=== PATIENT | female | born 1960 | race Caucasian/White ===

== ENCOUNTER 2016-09-21 12:38 | Emergency (ER) | payer MEDICAID ==
[~2016-09-21] VITALS: Wt 82.0 kg
--- NOTE | 2016-09-21 14:01 | RADRPT ---
PROCEDURE: US Pelvis. CLINICAL INDICATION: Vaginal bleeding TECHNIQUE: Multiple sonographic images of the pelvis were obtained utilizing a transabdominal and endovaginal technique. The images were reviewed on a PACS workstation. COMPARISON: August 19, 2013 FINDINGS: The uterus is visualized and measures 9.1 x 5.9 x 6.7 cm. The endometrial echo complex measures 5.6 mm thickness. A few intramural uterine fibroids are identified. The largest measures up to approxim ately 2.1 cm and appears stable. The right ovary measures 2.4 x 1.2 x 1.5 cm . The left ovary is not well visualized. The right ova ry demonstrates a normal echogenicity and vascularity.. No adnexal masses or pelvic free fluid are noted. IMPRESSION: Multifibroid uterus. The largest fibroid measures up to 2.1 cm and appears stable. Left ovary not well visualized. If characterization of this structure is needed repeat exam or MRI i s recommended. If further characterization of the organs of the pelvis is needed MRI should be considered. RPTAT: AA .Blade Walker MD, Date Time Electronically viewed and signed by .Blade Walker MD, on 09/21/2016 14:01 .P/
[2016-09-21 14:24] LABS: BASOPHILS % 0.3 % (0.0-2.0); EOSINOPHILS # 0.1 10^3/ul (0.0-0.5); EOSINOPHILS % 2.1 % (0.0-7.0); HEMATOCRIT 36.6 % (37.0-47.0); HEMOGLOBIN 11.8 g/dl (12.0-16.0); LYMPHOCYTES # 1.7 10^3/ul (0.8-2.9); LYMPHOCYTES % 25.1 % (15.0-51.0); MEAN CORPUSCULAR HEMOGLOBIN 29.9 pg (29.0-33.0); MEAN CORPUSCULAR HGB CONC 32.2 g/dl (32.0-37.0); MEAN CORPUSCULAR VOLUME 92.9 fl (82.0-101.0); MEAN PLATELET VOLUME 10.1 fl (7.4-10.4); MONOCYTE # 0.5 10^3/ul (0.3-0.9); MONOCYTES % 7.3 % (0.0-11.0); NEUTROPHIL # 4.3 10^3/ul (1.6-7.5); PLATELET COUNT 292 10^3/UL (140-415); RED BLOOD COUNT 3.94 10^6/ul (4.20-5.40); RED CELL DISTRIBUTION WIDTH 13.5 % (11.5-14.5); WHITE BLOOD COUNT 6.6 10^3/ul (4.8-10.8)
[2016-09-21 14:38] LABS: ALBUMIN 4.5 g/dl (3.3-4.9); ALBUMIN/GLOBULIN RATIO 1.21; BILIRUBIN,INDIRECT 0.2 mg/dl (0-1.1); BILIRUBIN,TOTAL 0.2 mg/dl (0.2-1.3); CREATININE 0.68 mg/dl (0.44-1.00); POTASSIUM 3.9 mmol/L (3.5-5.1); TOTAL PROTEIN 8.2 g/dl (6.1-8.1)
[2016-09-21 14:41] LABS: ADD SCAN DIFF NO
[2016-09-21 15:39] LABS: ADD UMIC YES; UR ASCORBIC ACID NEGATIVE (NEGATIVE); UR BILIRUBIN (Dip) NEGATIVE (NEGATIVE); UR BLOOD (Dip) 3+ mg/dL (NEGATIVE); UR CLARITY SLIGHTLY CLOUDY (CLEAR); UR COLOR YELLOW (YELLOW); UR GLUCOSE (Dip) NEGATIVE (NEGATIVE); UR KETONES (Dip) NEGATIVE (NEGATIVE); UR LEUKOCYTE ESTERASE (Dip) NEGATIVE Leu/ul (NEGATIVE); UR NITRITE (Dip) NEGATIVE (NEGATIVE); UR RBC > 182 /HPF (0-5); UR SPECIFIC GRAVITY (Dip) 1.017 (1.003-1.030); UR SQUAMOUS EPITHELIAL CELL FEW /HPF (FEW); UR TOTAL PROTEIN (Dip) 1+ mg/dl (NEGATIVE); UR UROBILINOGEN (Dip) NEGATIVE (NEGATIVE)
[2016-09-21] MEDS ORDERED: IBUP-1542 PO (15:43)
--- NOTE | 2016-09-21 15:56 | ERD ---
ER Documentation Chief Complaint Date/Time DATE: 09/21/16 TIME: 15:52 Chief Complaint VAG BLEEDING X1 DAY, DENIES PAIN HPI This is a 55-year-old female that presents to the ER with vaginal bleeding that started yesterday. Patient states that she has filled up one pad. Patient denies any pelvic pain she denies any urinary frequency or dysuria. She denies any fevers or chills. She denies any back pain or flank pain. Patient denies any weight loss, night sweats or chills. Patient underwent menopause 3 years ago. ROS 12 point review of systems was done, all negative except per HPI. Medications Home Meds Active Scripts Ibuprofen* (Motrin*) 600 Mg Tab, 600 MG PO Q6, #30 TAB Prov:MONCHO SALAZAR Ann 09/21/16 Allergies Allergies: Coded Allergies: No Known Allergy (Verified , 08/19/13) PMhx/Soc History of Surgery: No Anesthesia Reaction: No Hx Neurological Disorder: No Hx Respiratory Disorders: No Hx Cardiac Disorders: No Hx Psychiatric Problems: No Hx Miscellaneous Medical Probl: No Hx Alcohol Use: No Hx Substance Use: No Hx Tobacco Use: No Physical Exam Vitals Vital Signs Date Time Temp Pulse Resp B/P Pulse Ox O2 Delivery O2 Flow Rate FiO2 09/21/16 12:39 97.0 57 17 105/56 100 Physical Exam GENERAL: The patient is well developed and appropriate for usual state of health , in no apparent distress. HEENT: Atraumatic. CHEST: Clear to auscultation bilaterally. There are no rales, wheezes or rhonchi. HEART: Regular rate and rhythm. No murmurs, clicks, rubs or gallops. ABDOMEN: Soft, nontender and nondistended. BACK: No midline or flank tenderness. NEURO: Alert and oriented. SKIN: The skin is warm and dry. Result Diagram: 09/21/16 1410 09/21/16 1410 Results 24 hrs Laboratory Tests Test 09/21/16 14:10 09/21/16 15:17 White Blood Count 6.610^3/ul Red Blood Count 3.9410^6/ul Hemoglobin 11.8g/dl Hematocrit 36.6% Mean Corpuscular Volume 92.9fl Mean Corpuscular Hemoglobin 29.9pg Mean Corpuscular Hemoglobin Concent 32.2g/dl Red Cell Distribution Width 13.5% Platelet Count 86132^3/UL Mean Platelet Volume 10.1fl Neutrophils % 65.0% Lymphocytes % 25.1% Monocytes % 7.3% Eosinophils % 2.1% Basophils % 0.3% Nucleated Red Blood Cells % 0.0/100WBC Neutrophils # 4.310^3/ul Lymphocytes # 1.710^3/ul Monocytes # 0.510^3/ul Eosinophils # 0.110^3/ul Basophils # 0.010^3/ul Nucleated Red Blood Cells # 0.010^3/ul Sodium Level 137mmol/L Potassium Level 3.9mmol/L Chloride Level 102mmol/L Carbon Dioxide Level 27mmol/L Anion Gap 12 Blood Urea Nitrogen 14mg/dl Creatinine 0.68mg/dl Glucose Level 105mg/dl Calcium Level 9.0mg/dl Total Bilirubin 0.2mg/dl Direct Bilirubin 0.00mg/dl Indirect Bilirubin 0.2mg/dl Aspartate Amino Transf (AST/SGOT) 21IU/L Alanine Aminotransferase (ALT/SGPT) 33IU/L Alkaline Phosphatase 114IU/L Total Protein 8.2g/dl Albumin 4.5g/dl Globulin 3.70g/dl Albumin/Globulin Ratio 1.21 Urine Color YELLOW Urine Clarity SLIGHTLY CLOUDY Urine pH 6.0 Urine Specific [place] 1.017 Urine Ketones NEGATIVEmg/dL Urine Nitrite NEGATIVEmg/dL Urine Bilirubin NEGATIVEmg/dL Urine Urobilinogen NEGATIVEmg/dL Urine Leukocyte Esterase NEGATIVELeu/ul Urine Microscopic RBC > 182/HPF Urine Microscopic WBC 9/HPF Urine Squamous Epithelial Cells FEW/HPF Urine Hemoglobin 3+mg/dL Urine Glucose NEGATIVEmg/dL Urine Total Protein 1+mg/dl Procedures/MDM Differential diagnosis includes but is not limited to; fibroids, endometriosis, adenomyosis, malignancy. This is a 55-year-old female presents to the ER with vaginal bleeding. Patient did undergo menopause 3 years ago, she was found to have fibroids however I did discuss the importance of getting a Pap smear with her [employer] as malignancy cannot completely be ruled out. Patient will be sent home with ibuprofen. Patient is afebrile and well-appearing. Patient does have mild anemia however is not in need of transfusion. She is asymptomatic otherwise. Patient is to follow-up with her primary care doctor within 1-2 days return to ER sooner if symptoms worsen. My medical decision making was discussed with the patient she understands and agrees with plan. Departure Diagnosis: Primary Impression: Fibroids Condition: Stable Patient Instructions: What Are Fibroids? Additional Instructions: Llame al doctor LEEANN y georgiana ivan ELMA PARA DENTRO DE 1-2 DICKINSON.Dgale a la secretaria que nosotros le instruimos hacer esta elma.Avise o llame si doherty condicin se empeora antes de la elma. Regresa aqui si peor o no mejor. MONCHO SALAZAR Sep 21, 2016 15:56
== END 2016-09-21 16:11 | disposition home or self-care (01) ==
LOC: FTE 12:38
DX: D25.9 Leiomyoma of uterus, unspecified (principal)
CPT/HCPCS: 76830; 76856; 80053; 81001; 85025; Z7502

== ENCOUNTER 2017-01-18 14:36 | Emergency (ER) | payer MEDICAID ==
[~2017-01-18] VITALS: Wt 72.7 kg
[~2017-01-18 14:36] MED LIST: IBUP-1542 PO
[2017-01-18] MEDS ORDERED: KETOROLAC 30 MG INJ IM STA (15:18)
--- NOTE | 2017-01-18 15:46 | ERD ---
ER Documentation Chief Complaint Chief Complaint r. hand pain and swelling s/p fall today HPI 56 y/o female, previously healthy presents to the ED by herself c/o right hand and wrist pain after a mechanical ground level fall landing on her right hand 2 hours prior to arrival. The patient is right handed. The pain is dull, deep, 9/ 10 with decreased range in motion due to pain. No skin wounds, no head trauma, no LOC. No treatment attempted at this time. ROS SYSTEMIC symptoms: no fever, chills, no night sweats, no weight loss EYE symptoms: No blurred vision, no eye discharge OTOLARYNGEAL symptoms: No hearing loss. No ear pain, no sore throat CARDIOVASCULAR symptoms: No chest pain or discomfort, no palpitations. PULMONARY symptoms: No dyspnea, no cough, no wheezing. GASTROINTESTINAL symptoms: No abdominal pain, no nausea, no vomiting, no diarrhea NEUROLOGY symptoms: No confusion, no syncope, no numbness or tingling. SKIN no rashesAll systems reviewed and are negative except as per history of present illness. Medications Home Meds Active Scripts Ibuprofen* (Motrin*) 600 Mg Tab, 600 MG PO Q8, #30 TAB Prov:TR CHAMORRO MD 01/18/17 Ibuprofen* (Motrin*) 600 Mg Tab, 600 MG PO Q6, #30 TAB Prov:MONCHO SALAZAR 09/21/16 Allergies Allergies: Coded Allergies: No Known Allergy (Verified , 08/19/13) PMhx/Soc Medical and Surgical Hx: pt denies Medical Hx History of Surgery: No Anesthesia Reaction: No Hx Neurological Disorder: No Hx Respiratory Disorders: No Hx Cardiac Disorders: No Hx Psychiatric Problems: No Hx Miscellaneous Medical Probl: No Hx Alcohol Use: No Hx Substance Use: No Hx Tobacco Use: No Physical Exam Vitals Vital Signs Date Time Temp Pulse Resp B/P Pulse Ox O2 Delivery O2 Flow Rate FiO2 01/18/17 17:10 84 138/70 99 01/18/17 14:37 98.2 82 20 128/60 100 Physical Exam Const: alert, oriented, in mild distress due to pain. Head: Atraumatic Eyes: Normal Conjunctiva ENT: Normal External Ears, Nose and Mouth. Neck: Full range of motion..~ No meningismus. Resp: Clear to auscultation bilaterally Cardio: Regular rate and rhythm, no murmurs Ext: Rt hand and wrist: edema and ecchymosis, decreased range of motion. Neurovascular intact Neur: Awake and alert Psych: Normal Mood and Affect Results 24 hrs Current Medications Medications (Trade) Dose Ordered Sig/Olive Route PRN Reason Start Time Stop Time Status Last Admin Dose Admin Ketorolac Tromethamine (Toradol) 30 mg ONCE STAT IM 01/18/17 15:18 01/18/17 15:22 DC 01/18/17 15:27 Patient: VOLODYMYR LAUREN : 1960 Age: 56 Sex: F MR #: [id number] DOS: 01/18/171517 Ordering MD: TR CHAMORRO MD Location: [facility] Room/Bed: PROCEDURE: XR Hand. CLINICAL INDICATION: Ground-level fall. Pain. TECHNIQUE: Three views of the right hand were obtained. COMPARISON: No prior studies are available for comparison. FINDINGS: The bones of the hand appear intact, with no evidence of fracture, dislocation, or subluxation. The joint spaces are preserved. Bone mineralization is normal. No significant soft tissue swelling is seen. IMPRESSION: 1. Unremarkable right hand x-ray series. 2. No acute fracture or dislocation is seen. RPTAT: GG .Kurtis Ram MD, MD Date Time Electronically viewed and signed by .Kurtis Ram MD, MD on 01/18/2017 15:45 .L/ CC: TR CHAMORRO MD Patient: VOLODYMYR LAUREN : 1960 Age: 56 Sex: F MR #: [id number] DOS: 01/18/171517 Ordering MD: TR CHAMORRO MD Location: [facility] Room/Bed: PROCEDURE: XR Wrist. CLINICAL INDICATION: Ground-level fall. Pain. TECHNIQUE: AP, lateral and oblique views of the right wrist were performed. COMPARISON: No prior studies are available for comparison. FINDINGS: No evidence of fracture, dislocation, or subluxation is seen. The bones appear well mineralized. The joint spaces are well preserved. The soft tissues appear intact. IMPRESSION: Unremarkable exam of the right wrist. RPTAT: GG .Kurtis Ram MD, MD Date Time Electronically viewed and signed by .Kurtis Ram MD, MD on 01/18/2017 15:44 .L/ CC: TR CHAMORRO MD Procedures/MDM 56 y/o female patient with acute rt hand and wrist pain 2/2 trauma, concerning for possible Fx. XR reviewed, no evidence of fracture. neurovascular exam intact. Most likely hand contusion. The patient will be DC home with a sling, and Rx for NSAIDs, rest and local ice recommended. Follow up with her PCP in 2- 4 days. Departure Diagnosis: Primary Impression: Contusion of hand, right Encounter type: initial encounter Qualified Code: S60.221A - Contusion of right hand, initial encounter Condition: Stable TR CHAMORRO MD Jan 18, 2017 15:46
[2017-01-18] MEDS ORDERED: IBUP-1542 PO (16:42)
[2017-01-18 17:10] VITALS: BP 138/70; PULSE 84
== END 2017-01-18 17:11 | disposition home or self-care (01) ==
LOC: FTE 14:36
DX: S60.221A Contusion of right hand, initial encounter (principal); W18.39XA Other fall on same level, initial encounter; Y92.9 Unspecified place or not applicable
CPT/HCPCS: 73110; 73130; 96372; J1885; Z7502